=== PATIENT | male | born 1970 | race Caucasian/White ===

== ENCOUNTER 2020-08-26 09:43 | Inpatient (IN) | payer OTHER ==
[~2020-08-26] VITALS: Ht 190.5 cm; Wt 117.6 kg
[2020-08-26 10:30] LABS: BASOPHIL 0.2 % (0-2); EOSINOPHIL 0.3 % (0-5); HCT 45.6 % (42.0-52.0); HGB 16.4 g/dl (13.2-18.0); LYMPHOCYTE 7.1 % (15-48); MCH 29.7 pg (25.0-31.0); MCV 82.6 fL (78.0-100.0); MONOCYTE 8.8 % (0-12); MPV 11.4 fL (6.0-9.5); NRBC 0; PLT 283 K/uL (150-400); RBC 5.52 M/uL (4.70-6.00); RDW 13.4 % (11.5-14.0); WBC 17.7 K/uL (4.0-10.5)
[2020-08-26 10:42] LABS: BILIRUBIN - TOTAL 1.6 mg/dL (0.2-1.0); BUN/CREAT RATIO (CALC) 12.6 RATIO; CREATININE 0.87 mg/dL (0.67-1.17); GLOBULIN (CALCULATION) 3.2 g/dL; MAGNESIUM 1.8 mg/dL (1.8-2.4); POTASSIUM 3.5 mmol/L (3.5-5.1); TOTAL PROTEIN 7.2 g/dL (6.4-8.2)
[2020-08-26 14:47] LABS: BILIRUBIN NEGATIVE (NEGATIVE); BLOOD TRACE-LYSED Ery/uL (NEGATIVE); CLARITY CLEAR (CLEAR); COLOR YELLOW (YELLOW); GLUCOSE (U) NORMAL (NORMAL); LEUKOCYTES NEGATIVE Leu/uL (NEGATIVE); NITRITE NEGATIVE (NEGATIVE); PROTEIN NEGATIVE (NEGATIVE); pH 7.5 (5.0-9.0)
[2020-08-26] MEDS ORDERED: AMLODIPINE BESY10 MG PO (16:01)
[2020-08-26] MEDS ORDERED: ANTIVERT25 MG PO (16:02)
[2020-08-26] MEDS ORDERED: ZYRTEC10 MG PO (16:02)
[2020-08-26] MEDS ORDERED: VITAMIN D325 MC4 PO (16:03)
[2020-08-26 16:05] LABS: CHOLESTEROL 210 mg/dL (<200); HDL 44 mg/dL (40-60); LDL - DIRECT 148 mg/dL (<100); TRIGLYCERIDES 63 mg/dL (<150)
[2020-08-27 05:32] LABS: HCT 41.6 % (42.0-52.0); MCH 30.2 pg (25.0-31.0); MCHC 36.1 g/dL (32.0-36.0); MCV 83.7 fL (78.0-100.0); MPV 11.1 fL (6.0-9.5); RBC 4.97 M/uL (4.70-6.00); RDW 13.4 % (11.5-14.0); WBC 17.9 K/uL (4.0-10.5)
[2020-08-27 05:49] LABS: BUN/CREAT RATIO (CALC) 10.1 RATIO; CREATININE 0.69 mg/dL (0.67-1.17); POTASSIUM 3.1 mmol/L (3.5-5.1)
--- NOTE | 2020-08-27 15:40 | NUR ---
PT IS IN OBS. PLEASE CONSIDER FULL ADMIT OR D/C. THANK YOU.
[2020-08-28 07:00] LABS: HCT 41.3 % (42.0-52.0); HGB 14.4 g/dl (13.2-18.0); MCH 29.6 pg (25.0-31.0); MCHC 34.9 g/dL (32.0-36.0); MPV 11.6 fL (6.0-9.5); RBC 4.86 M/uL (4.70-6.00); RDW 13.3 % (11.5-14.0)
[2020-08-28 07:26] LABS: BILIRUBIN - TOTAL 1.8 mg/dL (0.2-1.0); BUN/CREAT RATIO (CALC) 11.4 RATIO; CREATININE 0.7 mg/dL (0.67-1.17); GLOBULIN (CALCULATION) 4.1 g/dL; POTASSIUM 3.1 mmol/L (3.5-5.1); TOTAL PROTEIN 7.1 g/dL (6.4-8.2)
[2020-08-28] MEDS ORDERED: DILAUDID2 MG PO (14:30)
[2020-08-28] MEDS ORDERED: ONDANSETRON ODT4 MG PO (15:16)
[2020-08-31] MEDS ORDERED: ONDANSETRON ODT4 MG PO (12:55)
[2020-08-31] MEDS ORDERED: PERCOCET 5-3251 EACH PO (12:58)
[2020-11-01] MEDS ORDERED: VENTOLIN HFA IN18 GM INH (07:12)
== END 2020-08-28 15:19 | disposition home or self-care (01) | DRG 440 ==
LOC: FER 09:43 → FMS 15:12
PROVIDERS: Emergency Medicine; Surgery; ADMIT Hospitalist
DX: K85.90 Acute pancreatitis without necrosis or infection, unspecified (principal); K76.0 Fatty (change of) liver, not elsewhere classified; I10 Essential (primary) hypertension; Z20.822 Contact with and (suspected) exposure to COVID-19; K80.20 Calculus of gallbladder without cholecystitis without obstruction; K21.9 Gastro-esophageal reflux disease without esophagitis; E87.6 Hypokalemia; Z98.890 Other specified postprocedural states
CPT/HCPCS: 36415; 74181; 76705; 80048; 80053; 80061; 81001; 82150; 83690; 83735; 84145; 85025; 94760; G0480; J1170; J1650; J1885; J2270; J2405; J3480; J7030; J7120; Q9967; U0002

== ENCOUNTER → 2020-08-31 | Day surgery (SDC) | payer OTHER ==
[~2020-08-31] MED LIST: AMLODIPINE BESY10 MG PO; ANTIVERT25 MG PO; DILAUDID2 MG PO; ONDANSETRON ODT4 MG PO; PERCOCET 5-3251 EACH PO; VENTOLIN HFA IN18 GM INH; VITAMIN D325 MC4 PO; ZYRTEC10 MG PO
== END | disposition home or self-care (01) ==
LOC: FAS 09:08
DX: K81.1 Chronic cholecystitis (principal); K85.10 Biliary acute pancreatitis without necrosis or infection; K42.9 Umbilical hernia without obstruction or gangrene; Z20.822 Contact with and (suspected) exposure to COVID-19; I10 Essential (primary) hypertension
CPT/HCPCS: 93005; J0295; J1100; J1170; J1885; J2250; J2405; J2704; J2710; J3010; J7120

== ENCOUNTER → 2020-11-01 | Day surgery (SDC) | payer OTHER ==
[~2020-11-01] VITALS: Ht 190.5 cm; Wt 117.6 kg
== END | disposition home or self-care (01) ==
LOC: FAS 06:57
DX: Z12.11 Encounter for screening for malignant neoplasm of colon (principal); D12.5 Benign neoplasm of sigmoid colon; I10 Essential (primary) hypertension; J45.909 Unspecified asthma, uncomplicated; Z79.899 Other long term (current) drug therapy
CPT/HCPCS: J2250; J2704; J7120